=== PATIENT | male | born 1965 | race Caucasian/White ===

== ENCOUNTER 2017-05-07 13:14 | Emergency (ER) | payer OTHER ==
[2017-05-07 13:45] VITALS: BP 118/69
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
[2017-05-07] MEDS ORDERED: HYDROcodone/ACETAMIN 5-325 MG* 1 TAB PO ONE (14:43)
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
== END 2017-05-07 14:54 | disposition home or self-care (01) ==
LOC: UCCORT 13:14
DX: S30.0XXA Contusion of lower back and pelvis, initial encounter (principal); S43.401A Unspecified sprain of right shoulder joint, initial encounter; S40.811A Abrasion of right upper arm, initial encounter; V18.0XXA Pedal cycle driver injured in noncollision transport accident in nontraffic accident, initial encounter; Y93.55 Activity, bike riding; Y92.9 Unspecified place or not applicable; F17.210 Nicotine dependence, cigarettes, uncomplicated
CPT/HCPCS: 99213; G0463